=== PATIENT | female | born 1995 | race Caucasian/White ===

== ENCOUNTER 2017-08-04 02:41 | Inpatient (IN) | payer OTHER ==
[2017-08-04] VITALS (19 sets, daily range): BP systolic 116–162; BP diastolic 58–91; PULSE 84–104; RESP 17–30; TEMP 97.4–98.7; O2SAT 93–100
[~2017-08-04] VITALS: Ht 160 cm; Wt 78.9 kg
[2017-08-04] MEDS ORDERED: PROPOFOL 1000 MG/100 ML INJ 100 ML ONE (03:06)
[2017-08-04] MEDS ORDERED: ceFAZolin 2 GM PREMIX 50 ML ONE (03:16)
[2017-08-04] MEDS ORDERED: DIPHTH/TETANUS/ACEL PERTUSSIS (BOOSTER) 0.5 ML VIAL/PFS IM ONE (03:17)
[2017-08-04 03:18] LABS: HEMATOCRIT 37.9 % (35.0-46.0); MEAN CELL VOLUME 87.2 FL (80.0-100.0); MEAN CORPUSCULAR HEMOGLOBIN 29.9 PG (27.0-34.0); MEAN CORPUSCULAR HGB CONC 34.3 % (32.0-36.0); MEAN PLATELET VOLUME 7.8 FL (7.0-11.0); PLATELET COUNT 411 TH/MM3 (150-450); RED BLOOD COUNT 4.34 MIL/MM3 (4.00-5.30); RED CELL DISTRIBUTION WIDTH 13.4 % (11.6-17.2); WHITE BLOOD COUNT 29.3 TH/MM3 (4.0-11.0)
[2017-08-04 03:25] LABS: PROTHROMBIN TIME - PATIENT 9.8 SEC (9.8-11.6)
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
[2017-08-04 03:30] LABS: BICARBONATE 18.9 MEQ/L (21.0-32.0); BLOOD UREA NITROGEN 9 MG/DL (7-18); CALCIUM 8.5 MG/DL (8.5-10.1); CHLORIDE 105 MEQ/L (98-107); CREATININE 0.92 MG/DL (0.50-1.00); GLOMERULAR FILTRATION RATE 53 ML/MIN (>89); GLUCOSE,RANDOM 155 MG/DL (74-106); SODIUM (NA) 140 MEQ/L (136-145)
[2017-08-04] MEDS ORDERED: IOHEXOL 350 MG/ML 10 ML VIAL (for RAD DIAG) IVCONTRAST ONE (03:59)
[2017-08-04 04:00] LABS: BANDS 1 % (0-6); LYMPHOCYTES 24 % (9-44); MONOCYTES 3 % (0-8); NEUTROPHIL # MANUAL DIFF 21.4 TH/MM3 (1.8-7.7); POLYS (SEG NEUTROPHILS) 72 % (16-70)
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
[2017-08-04] MEDS ORDERED: fentaNYL DRIP 250 ML IV PRN (04:15)
[2017-08-04] MEDS ORDERED: ENALAPRILAT 1.25 MG/ML VIAL IV PUSH PRN (04:15)
[2017-08-04] MEDS ORDERED: SODIUM CHLORIDE 0.9% FLUSH 10 ML FLUSH IV FLUSH PRN (04:15)
[2017-08-04] MEDS ORDERED: MAGNESIUM HYDROXIDE SUSP 30 ML CUP PO PRN (04:15)
[2017-08-04] MEDS ORDERED: CHLORHEXIDINE GLUCONATE 2 % 1 PACK (2 CLOTHS) TOP PRN (04:15)
[2017-08-04] MEDS ORDERED: NURSING INFORMATION XX SCH (04:15)
[2017-08-04] MEDS ORDERED: PROPOFOL 1000 MG/100 ML INJ 100 ML IV PRN (04:15)
[2017-08-04] MEDS ORDERED: ONDANSETRON ODT 4 MG TAB PO PRN (04:30)
[2017-08-04] MEDS: fentaNYL 2,500 MCG/NS 250 ML IV PRN ×2 (04:41→16:35)
[2017-08-04 05:13] LABS: HEMATOCRIT 33.6 % (35.0-46.0); HEMOGLOBIN 11.6 GM/DL (11.6-15.3)
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
[2017-08-04] MEDS: POTASSIUM CHLOR 20 MEQ PREMIX 100 ML IV SCH ×2 (06:11→07:57)
[2017-08-04] MEDS ORDERED: BISACODYL 10 MG SUPP RECTAL PRN ×2 (07:00)
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
[2017-08-04] MEDS: CHLORHEXIDINE 0.12% (ORAL KIT) 15 ML CUP MT SCH ×2 (07:57→19:27)
[2017-08-04] MEDS: DOCUSATE SODIUM 50 MG/SENNA 8.6 MG TAB PO SCH ×2 (07:58→19:27)
[2017-08-04] MEDS: PROPOFOL 1000 MG/100 ML IV PRN ×4 (07:58→17:56)
[2017-08-04] MEDS: LACTULOSE SYRUP 20 GM/30 ML CUP PO SCH (07:58)
[2017-08-04] MEDS ORDERED: DOCUSATE SODIUM 100 MG CAP PO SCH (09:00)
[2017-08-04] MEDS ORDERED: LACTULOSE SYRUP 20 GM/30 ML CUP PO SCH (09:00)
[2017-08-04] MEDS ORDERED: DOCUSATE SODIUM 50 MG/SENNA 8.6 MG TAB PO SCH (09:00)
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
[2017-08-04] MEDS: LACTATED RINGER'S 1000 ML INJ 1,000 ML IV SCH ×2 (10:15→19:28)
[2017-08-04 13:28] LABS: HEMATOCRIT 34.5 % (35.0-46.0); HEMOGLOBIN 11.3 GM/DL (11.6-15.3)
--- NOTE | 2017-08-04 15:27 | PD.OP ---
Operative Report Date of Surgery: Aug 04, 2017 Preoperative Diagnosis: Right pneumothorax with massive subcutaneous emphysema Postoperative Diagnosis: Right pneumothorax, hemothorax with massive subcutaneous emphysema Procedure: Right sided chest tube placement Anesthesia: None, patient was on propofol and a just undergone rapid sequence intubation Surgeon: Gerard Arshad [employer] Worker(s): None Resident Surgeon: None Operation and Findings: Patient was prepped and draped in a standard sterile manner this was an emergent procedure with an obvious pneumothorax and tension physiology. 3 cm incision was made in the right anterior axillary line over the sixth rib. Blunt dissection using a Chioma clamp was utilized to enter the fifth intercostal space with immediate hennessy of a large volume of air. 32 Filipino chest tube was then placed into position and secured at 16 cm, covered with an occlusive sterile dressing and placed to 20 cm wall suction. Patient noted procedure well there is no complication all sharps were accounted for disposed of properly. Gerard Arshad MD Aug 04, 2017 15:27
[2017-08-04] MEDS ORDERED: DIATRIZOATE MEGLUM/DIATRIZOATE SOD 9 ML CUP PO ONE (16:45)
[2017-08-04 17:46] LABS: HEMATOCRIT 31.4 % (35.0-46.0); HEMOGLOBIN 10.6 GM/DL (11.6-15.3)
[2017-08-04] MEDS ORDERED: IODIXANOL 320 MG/ML 10 ML VIAL (for Rad CT) IVCONTRAST ONE (20:26)
--- NOTE | 2017-08-04 20:54 | RADRPT ---
EXAM DATE: 08/04/2017 8:28 PM EDT AGE/SEX: 89 years / Female INDICATIONS: Follow liver laceration. CLINICAL DATA: This is the patient's subsequent encounter. Patient reports that signs and symptoms h ave been present for 1 day and indicates a pain score of Nonresponsive. MEDICAL/SURGICAL HISTORY: Non-responsive. Non-responsive. ORAL CONTRAST: Prescribed oral contrast ingested. RADIATION DOSE: 9.39 CTDI (mGy) COMPARISON: [facility] [place] ABDOM[place] & PELVIS W CONTRAST, 08/04/2017. . TECHNIQUE: Multiple contiguous axial images were obtained through the abdomen and pelvis following b olus infusion of 75 ml Visipaque 320 (iodixanol) nonionic water-soluble contrast as a single exam d ose. Prescribed oral contrast ingested. Using automated exposure control and adjustment of the mA an d/or kV according to patient size, the radiation dose was kept as low as reasonably achievable to obt ain optimal diagnostic quality images. FINDINGS: Compared with exam from earlier today. Right-sided chest tube is present with a persistent small righ t pneumothorax. Slight increase in right basilar lung consolidation since earlier exam. Left basilar consolidation relatively stable. There is extensive pneumomediastinum as well as extensive air within the body wall bilaterally extend ing from the chest through the abdomen and into bilateral breasts. NG tube present in the stomach. Laceration of the right lobe of the liver is similar to earlier examination. There is some contrast w ithin the gallbladder. Possible laceration upper pole right kidney, stable. There is some free intrap eritoneal fluid which is similar to earlier exam. Fetus present within the uterus. Air within the abd omen is stable. CONCLUSION: 1. Stable CT appearance of right lobe liver laceration. No significant change in intraperitoneal flu id or hemorrhage. 2. Slight increase in right basilar lung consolidation. Persistent small right pleural effusion. 3. Extensive pneumomediastinum persists with air dissecting into the body wall of the chest and abdo men. Stable air within the abdomen and pelvis since earlier exam. Fetus present. 4. Stable right 12th rib fracture. Electronically signed by: Mat Mathur MD 08/04/2017 8:53 PM EDT
[2017-08-05] VITALS (16 sets, daily range): BP systolic 100–128; BP diastolic 50–60; PULSE 76–102; RESP 16–29; TEMP 97.9–98.9; O2SAT 95–100
[2017-08-05] MEDS: PROPOFOL 1000 MG/100 ML IV PRN ×3 (00:16→08:27)
[2017-08-05] MEDS: fentaNYL 2,500 MCG/NS 250 ML IV PRN ×2 (02:09→13:29)
[2017-08-05] MEDS: CHLORHEXIDINE GLUCONATE 2 % 1 PACK (2 CLOTHS) TOP SCH ×2 (02:17→23:20)
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
[2017-08-05] MEDS ORDERED: POTASSIUM CHLOR 40 MEQ PREMIX 100 ML IV PRN ×2 (05:45)
[2017-08-05] MEDS ORDERED: MAGNESIUM SULFATE INJ 4 GM in SODIUM CHLORIDE 0.9% INJ 92 ML IV PRN (05:45)
[2017-08-05] MEDS ORDERED: MAGNESIUM SULFATE INJ 2 GM in SODIUM CHLORIDE 0.9% INJ 96 ML IV PRN (05:45)
[2017-08-05] MEDS ORDERED: POTASSIUM PHOSPHATE MONOBASIC 500 MG TAB PO/TUBE PRN (05:45)
[2017-08-05] MEDS ORDERED: SODIUM PHOSPHATE INJ 30 MMOL in SODIUM CHLOR 0.9% 250 ML INJ 240 ML IV PRN (05:45)
[2017-08-05] MEDS ORDERED: MAGNESIUM OXIDE 400 MG TAB PO PRN (05:45)
[2017-08-05] MEDS ORDERED: POTASSIUM PHOSPHATE INJ 30 MMOL in SODIUM CHLOR 0.9% 250 ML INJ 250 ML IV PRN (05:45)
[2017-08-05] MEDS ORDERED: POTASSIUM PHOSPHATE MONOBASIC 500 MG TAB PO PRN (05:45)
[2017-08-05] MEDS ORDERED: POTASSIUM CHLOR 20 MEQ PREMIX 100 ML IV PRN (05:45)
[2017-08-05 06:22] LABS: AUTOMATED NEUTROPHIL # 10.4 TH/MM3 (1.8-7.7); BASOPHIL % 0.2 % (0.0-2.0); EOSINOPHIL % 0.4 % (0.0-4.0); HEMATOCRIT 27.3 % (35.0-46.0); HEMOGLOBIN 9.3 GM/DL (11.6-15.3); LYMPH % 12.6 % (9.0-44.0); LYMPHOCYTE # 1.6 TH/MM3 (1.0-4.8); MEAN CORPUSCULAR HEMOGLOBIN 29.9 PG (27.0-34.0); MEAN PLATELET VOLUME 7.2 FL (7.0-11.0); MONO % 4.1 % (0.0-8.0); MONOCYTE # 0.5 TH/MM3 (0-0.9); NEUT % 82.7 % (16.0-70.0); PLATELET COUNT 206 TH/MM3 (150-450); RED BLOOD COUNT 3.11 MIL/MM3 (4.00-5.30); RED CELL DISTRIBUTION WIDTH 13.7 % (11.6-17.2); WHITE BLOOD COUNT 12.5 TH/MM3 (4.0-11.0)
[2017-08-05 06:49] LABS: BICARBONATE 18.4 MEQ/L (21.0-32.0); CALCIUM 7.9 MG/DL (8.5-10.1); CREATININE 0.5 MG/DL (0.50-1.00)
[2017-08-05] MEDS: LACTATED RINGER'S 1000 ML INJ 1,000 ML IV SCH (07:55)
[2017-08-05] MEDS: CHLORHEXIDINE 0.12% (ORAL KIT) 15 ML CUP MT SCH ×2 (08:00→20:00)
[2017-08-05] MEDS: POTASSIUM CHLOR 20 MEQ PREMIX 100 ML IV PRN ×2 (08:19→11:20)
[2017-08-05] MEDS: LACTULOSE SYRUP 20 GM/30 ML CUP PO SCH (08:19)
[2017-08-05] MEDS: DOCUSATE SODIUM 50 MG/SENNA 8.6 MG TAB PO SCH ×2 (08:19→20:33)
[2017-08-05 08:46] LABS: MAGNESIUM 1.9 MG/DL (1.5-2.5); PHOSPHORUS 2.7 MG/DL (2.5-4.9)
[2017-08-05] MEDS ORDERED: MIDAZOLAM 100 MG/100 ML INJ 100 ML IV PRN (10:15)
[2017-08-05] MEDS: oxyCODONE HCL ORAL CONC 5 MG/0.25 ML SYRINGE PO SCH ×4 (11:00→23:00)
[2017-08-05] MEDS: HEPARIN SODIUM - SQ 10,000 UNITS/ML VIAL SQ SCH ×2 (11:23→23:00)
[2017-08-05] MEDS ORDERED: MIDAZOLAM 50 MG/NS 50 ML DRIP Premix IV PRN (13:00)
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
[2017-08-05] MEDS: PROPOFOL 1000 MG/100 ML INJ 100 ML IV PRN ×2 (17:26→20:00)
[2017-08-06] VITALS (14 sets, daily range): BP systolic 100–121; BP diastolic 52–60; PULSE 86–114; RESP 16–20; TEMP 98.2–99.7; O2SAT 94–100
[2017-08-06] MEDS: fentaNYL 2,500 MCG/NS 250 ML IV PRN ×3 (01:00→22:47)
[2017-08-06] MEDS: oxyCODONE HCL ORAL CONC 5 MG/0.25 ML SYRINGE PO SCH ×6 (02:56→22:47)
[2017-08-06] MEDS: PROPOFOL 1000 MG/100 ML INJ 100 ML IV PRN ×5 (04:15→20:14)
--- NOTE | 2017-08-06 04:40 | RADRPT ---
EXAM DATE: 08/06/2017 3:57 AM EDT AGE/SEX: 21 years / Female INDICATIONS: Evaluate for pneumothorax. CLINICAL DATA: This is the patient's subsequent encounter. Patient reports that signs and symptoms h ave been present for 3 days and indicates a pain score of Nonresponsive. MEDICAL/SURGICAL HISTORY: Non-responsive. Non-responsive. COMPARISON: [facility] [place]. . FINDINGS: Today's exam is compared to the prior study. The support devices remain in place. The previously note d right pneumothorax has essentially resolved. There is a patchy infiltrate in the right lung base. L eft lung appears to be clear and stable. No definite pleural effusions. The heart size is stable. The bony structures are stable. The subcutaneous emphysema is mildly improved.. CONCLUSION: 1. Right chest tube remains in place. The previously noted right pneumothorax has essentially resolv ed. 2. Patchy infiltrate in the right lung base. 3. Improving subcutaneous emphysema. Electronically signed by: Chay Patel MD 08/06/2017 4:39 AM EDT
[2017-08-06 06:45] LABS: AUTOMATED NEUTROPHIL # 9.9 TH/MM3 (1.8-7.7); BASOPHIL % 0.3 % (0.0-2.0); EOSINOPHIL # 0.1 TH/MM3 (0-0.4); HEMOGLOBIN 8.7 GM/DL (11.6-15.3); LYMPH % 12.9 % (9.0-44.0); LYMPHOCYTE # 1.6 TH/MM3 (1.0-4.8); MEAN CELL VOLUME 87.9 FL (80.0-100.0); MEAN CORPUSCULAR HEMOGLOBIN 30.5 PG (27.0-34.0); MEAN CORPUSCULAR HGB CONC 34.7 % (32.0-36.0); MEAN PLATELET VOLUME 7.2 FL (7.0-11.0); MONO % 3.2 % (0.0-8.0); MONOCYTE # 0.4 TH/MM3 (0-0.9); NEUT % 82.6 % (16.0-70.0); PLATELET COUNT 202 TH/MM3 (150-450); RED BLOOD COUNT 2.85 MIL/MM3 (4.00-5.30); RED CELL DISTRIBUTION WIDTH 13.6 % (11.6-17.2)
[2017-08-06 07:04] LABS: BICARBONATE 19.5 MEQ/L (21.0-32.0); CALCIUM 7.9 MG/DL (8.5-10.1); CREATININE 0.47 MG/DL (0.50-1.00)
[2017-08-06] MEDS: CHLORHEXIDINE 0.12% (ORAL KIT) 15 ML CUP MT SCH ×2 (09:28→20:14)
[2017-08-06] MEDS: DOCUSATE SODIUM 50 MG/SENNA 8.6 MG TAB PO SCH ×2 (09:28→20:14)
[2017-08-06] MEDS: LACTULOSE SYRUP 20 GM/30 ML CUP PO SCH (09:28)
[2017-08-06] MEDS: LACTATED RINGER'S 1000 ML INJ 1,000 ML IV SCH ×2 (10:22→22:47)
[2017-08-06] MEDS: HEPARIN SODIUM - SQ 10,000 UNITS/ML VIAL SQ SCH ×2 (11:49→22:47)
[2017-08-07] VITALS (17 sets, daily range): BP systolic 108–125; BP diastolic 53–70; PULSE 84–112; RESP 16–27; TEMP 98.2–99.8; O2SAT 95–100
[2017-08-07] MEDS: PROPOFOL 1000 MG/100 ML INJ 100 ML IV PRN ×2 (01:00→06:00)
[2017-08-07] MEDS: CHLORHEXIDINE GLUCONATE 2 % 1 PACK (2 CLOTHS) TOP SCH (02:49)
[2017-08-07] MEDS: oxyCODONE HCL ORAL CONC 5 MG/0.25 ML SYRINGE PO SCH ×3 (02:51→09:02)
[2017-08-07 05:50] LABS: AUTOMATED NEUTROPHIL # 6.2 TH/MM3 (1.8-7.7); BASOPHIL % 0.2 % (0.0-2.0); EOSINOPHIL # 0.1 TH/MM3 (0-0.4); EOSINOPHIL % 1.1 % (0.0-4.0); LYMPH % 15.6 % (9.0-44.0); LYMPHOCYTE # 1.2 TH/MM3 (1.0-4.8); MEAN CELL VOLUME 87.3 FL (80.0-100.0); MEAN CORPUSCULAR HEMOGLOBIN 30.5 PG (27.0-34.0); MEAN CORPUSCULAR HGB CONC 34.9 % (32.0-36.0); MEAN PLATELET VOLUME 7.2 FL (7.0-11.0); MONO % 4.2 % (0.0-8.0); MONOCYTE # 0.3 TH/MM3 (0-0.9); NEUT % 78.9 % (16.0-70.0); PLATELET COUNT 174 TH/MM3 (150-450); RED BLOOD COUNT 2.63 MIL/MM3 (4.00-5.30); RED CELL DISTRIBUTION WIDTH 13.2 % (11.6-17.2); WHITE BLOOD COUNT 7.9 TH/MM3 (4.0-11.0)
[2017-08-07 06:09] LABS: BICARBONATE 19.7 MEQ/L (21.0-32.0); CREATININE 0.32 MG/DL (0.50-1.00)
--- NOTE | 2017-08-07 06:13 | RADRPT ---
EXAM DATE: 08/07/2017 5:59 AM EDT AGE/SEX: 21 years / Female INDICATIONS: Short of breath. CLINICAL DATA: This is the patient's subsequent encounter. Patient reports that signs and symptoms h ave been present for 3 days and indicates a pain score of 0/10. MEDICAL/SURGICAL HISTORY: Non-responsive. Non-responsive. COMPARISON: [facility], CHEST SINGLE AP, 08/06/2017. . FINDINGS: Endotracheal tube and nasogastric tube in good position. Right chest tube without significant pneumot horax. Extensive subcutaneous air remains. Bilateral patchy airspace disease relatively unchanged ove r the last day. No pneumothorax or significant effusion identified. CONCLUSION: Right chest tube without significant pneumothorax. No significant change compared with August 06. Electronically signed by: Mat Mathur MD 08/07/2017 6:11 AM EDT
[2017-08-07] MEDS: POTASSIUM CHLORIDE 20 MEQ PWD PACKET PO PRN (06:31)
[2017-08-07] MEDS: LACTULOSE SYRUP 20 GM/30 ML CUP PO SCH (09:02)
[2017-08-07] MEDS: DOCUSATE SODIUM 50 MG/SENNA 8.6 MG TAB PO SCH ×2 (09:02→21:39)
[2017-08-07] MEDS: CHLORHEXIDINE 0.12% (ORAL KIT) 15 ML CUP MT SCH (09:03)
--- NOTE | 2017-08-07 09:23 | PD.CONS ---
History & Physical H&P Patient evaluated by resident team and Dr. Manzo this morning. Wet prep was performed as nursing staff reported white vaginal discharge. heart tones were detected with Doppler estimated in the 130s. At that time patient requested an ultrasound of the baby as she was sedated with the previous ultrasound during this hospitalization. Bedside ultrasound was performed by Dr. Manzo with noted good movement, grossly normal fluid. Did not assess any formal anatomic survey, measurements. Will change heart tones to daily as opposed to every shift. Casey Zavala MD R1 Aug 07, 2017 09:23
[2017-08-07] MEDS ORDERED: MORPHINE SULFATE 4 MG/ML INJ IV PUSH PRN (10:15)
[2017-08-07] MEDS: HEPARIN SODIUM - SQ 10,000 UNITS/ML VIAL SQ SCH ×2 (11:02→22:28)
[2017-08-07] MEDS ORDERED: REMOVE OLD LIDOCAINE PATCH T-DERMAL SCH (12:00)
[2017-08-07] MEDS: METHOCARBAMOL 500 MG TAB PO SCH ×2 (13:27→21:38)
[2017-08-07] MEDS: oxyCODONE/ACETAMINOPHEN 5 MG/325 MG TAB PO PRN ×3 (13:28→21:39)
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
[2017-08-07] MEDS: LIDOCAINE HCL 5% PATCH T-DERMAL SCH (16:39)
[2017-08-07] MEDS: MULTIVITAMIN TAB PO SCH (16:40)
[2017-08-07] MEDS: THIAMINE HCL 100 MG TAB PO SCH (16:43)
[2017-08-07] MEDS: FOLIC ACID 1 MG TAB PO SCH (16:44)
[2017-08-07] MEDS: FERROUS SULFATE 325 MG (65 MG ELEMENTAL IRON) TAB PO SCH (16:44)
[2017-08-08] VITALS (10 sets, daily range): BP systolic 105–162; BP diastolic 57–80; PULSE 76–98; RESP 16–18; TEMP 98–98.6; O2SAT 95–100
[2017-08-08] MEDS: CHLORHEXIDINE GLUCONATE 2 % 1 PACK (2 CLOTHS) TOP SCH (04:00)
[2017-08-08] MEDS: oxyCODONE/ACETAMINOPHEN 5 MG/325 MG TAB PO PRN ×3 (04:05→19:18)
--- NOTE | 2017-08-08 05:16 | RADRPT ---
EXAM DATE: 08/08/2017 5:05 AM EDT AGE/SEX: 21 years / Female INDICATIONS: Pneumothorax, right sided. CLINICAL DATA: This is the patient's subsequent encounter. Patient reports that signs and symptoms h ave been present for 4 - 6 days and indicates a pain score of Nonresponsive. MEDICAL/SURGICAL HISTORY: Non-responsive. Non-responsive. COMPARISON: [facility] [place], [place]. . FINDINGS: Right chest tube without pneumothorax. Bilateral mostly basilar and dependent airspace disease is sta ble. Extensive subcutaneous air. Removal of NG tube and endotracheal tube. CONCLUSION: Right chest tube without significant pneumothorax. Stable bilateral airspace disease. Extensive subcu taneous air. Interval extubation. Electronically signed by: Mat Mathur MD 08/08/2017 5:15 AM EDT
[2017-08-08 05:39] LABS: BASOPHIL % 0.2 % (0.0-2.0); EOSINOPHIL # 0.1 TH/MM3 (0-0.4); EOSINOPHIL % 0.9 % (0.0-4.0); HEMATOCRIT 25.8 % (35.0-46.0); HEMOGLOBIN 9.1 GM/DL (11.6-15.3); LYMPH % 13.1 % (9.0-44.0); MEAN CORPUSCULAR HEMOGLOBIN 30.8 PG (27.0-34.0); MEAN CORPUSCULAR HGB CONC 35.4 % (32.0-36.0); MEAN PLATELET VOLUME 7.2 FL (7.0-11.0); MONO % 5.6 % (0.0-8.0); MONOCYTE # 0.4 TH/MM3 (0-0.9); NEUT % 80.2 % (16.0-70.0); PLATELET COUNT 234 TH/MM3 (150-450); RED BLOOD COUNT 2.96 MIL/MM3 (4.00-5.30); RED CELL DISTRIBUTION WIDTH 13.2 % (11.6-17.2); WHITE BLOOD COUNT 7.5 TH/MM3 (4.0-11.0)
[2017-08-08 05:54] LABS: ALBUMIN 2.2 GM/DL (3.4-5.0); AST (GOT) 49 U/L (16-38); BICARBONATE 21.2 MEQ/L (21.0-32.0); BLOOD UREA NITROGEN 3 MG/DL (7-18); CHLORIDE 106 MEQ/L (98-107); CREATININE 0.32 MG/DL (0.50-1.00); GLOMERULAR FILTRATION RATE 266 ML/MIN (>89); GLUCOSE,RANDOM 69 MG/DL (74-106); SODIUM (NA) 141 MEQ/L (136-145)
[2017-08-08 05:55] LABS: ALT (GPT) 108 U/L (9-42)
[2017-08-08 05:57] LABS: ALKALINE PHOSPHATASE 111 U/L (45-117); TOTAL BILIRUBIN ADULT 1.5 MG/DL (0.2-1.0); TOTAL PROTEIN 5.6 GM/DL (6.4-8.2)
[2017-08-08] MEDS: METHOCARBAMOL 500 MG TAB PO SCH (06:12)
[2017-08-08] MEDS: LACTULOSE SYRUP 20 GM/30 ML CUP PO SCH (08:57)
[2017-08-08] MEDS: MULTIVITAMIN TAB PO SCH (08:57)
[2017-08-08] MEDS: LIDOCAINE HCL 5% PATCH T-DERMAL SCH (08:57)
[2017-08-08] MEDS: REMOVE OLD LIDOCAINE PATCH T-DERMAL SCH (08:58)
[2017-08-08] MEDS: FERROUS SULFATE 325 MG (65 MG ELEMENTAL IRON) TAB PO SCH (08:58)
[2017-08-08] MEDS: FOLIC ACID 1 MG TAB PO SCH (08:58)
[2017-08-08] MEDS: THIAMINE HCL 100 MG TAB PO SCH (08:58)
[2017-08-08] MEDS: DOCUSATE SODIUM 50 MG/SENNA 8.6 MG TAB PO SCH ×2 (08:58→19:17)
[2017-08-08] MEDS: POTASSIUM CHLORIDE 20 MEQ PWD PACKET PO PRN (08:59)
[2017-08-08] MEDS: HEPARIN SODIUM - SQ 10,000 UNITS/ML VIAL SQ SCH ×2 (10:07→22:59)
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
[2017-08-08] MEDS: MICONAZOLE NITRATE 200 MG VAG SUPP VAGINAL SCH (20:21)
[2017-08-09] VITALS (7 sets, daily range): BP systolic 116–141; BP diastolic 55–69; PULSE 76–100; RESP 17–18; TEMP 97.6–98.3; O2SAT 94–98
[2017-08-09] MEDS: oxyCODONE/ACETAMINOPHEN 5 MG/325 MG TAB PO PRN (00:46)
[2017-08-09 04:22] LABS: AUTOMATED NEUTROPHIL # 7.5 TH/MM3 (1.8-7.7); BASOPHIL % 0.4 % (0.0-2.0); EOSINOPHIL # 0.1 TH/MM3 (0-0.4); EOSINOPHIL % 0.8 % (0.0-4.0); HEMATOCRIT 27.8 % (35.0-46.0); HEMOGLOBIN 9.7 GM/DL (11.6-15.3); LYMPH % 11.2 % (9.0-44.0); MEAN CELL VOLUME 86.2 FL (80.0-100.0); MEAN CORPUSCULAR HGB CONC 34.8 % (32.0-36.0); MONO % 5.2 % (0.0-8.0); MONOCYTE # 0.5 TH/MM3 (0-0.9); NEUT % 82.4 % (16.0-70.0); PLATELET COUNT 273 TH/MM3 (150-450); RED BLOOD COUNT 3.23 MIL/MM3 (4.00-5.30); RED CELL DISTRIBUTION WIDTH 13.1 % (11.6-17.2); WHITE BLOOD COUNT 9.1 TH/MM3 (4.0-11.0)
[2017-08-09 04:43] LABS: ALBUMIN 2.2 GM/DL (3.4-5.0); ALT (GPT) 85 U/L (9-42); AST (GOT) 24 U/L (16-38); BLOOD UREA NITROGEN 4 MG/DL (7-18); CHLORIDE 106 MEQ/L (98-107); CREATININE 0.27 MG/DL (0.50-1.00); GLOMERULAR FILTRATION RATE 324 ML/MIN (>89); GLUCOSE,RANDOM 72 MG/DL (74-106); SODIUM (NA) 140 MEQ/L (136-145)
[2017-08-09 04:45] LABS: ALKALINE PHOSPHATASE 98 U/L (45-117)
--- NOTE | 2017-08-09 04:45 | RADRPT ---
EXAM DATE: 08/09/2017 4:40 AM EDT AGE/SEX: 21 years / Female INDICATIONS: Pneumothorax, right sided CLINICAL DATA: This is the patient's subsequent encounter. Patient reports that signs and symptoms h ave been present for 4 - 6 days and indicates a pain score of 0/10. MEDICAL/SURGICAL HISTORY: Non-responsive. Non-responsive. COMPARISON: [facility] – [place], CHEST SINGLE AP, 08/08/2017. . FINDINGS: Right chest present without significant pneumothorax. Bilateral mostly basilar airspace disease simil ar to August 08. Subcutaneous air present bilaterally. Right chest tube without significant pneumothorax. Bilateral airspace disease similar to prior exam. CONCLUSION: Right chest tube without significant pneumothorax. Bilateral airspace disease similar to prior exam. Electronically signed by: Mat Mathur MD 08/09/2017 4:44 AM EDT
[2017-08-09] MEDS ORDERED: POTASSIUM CHLORIDE 20 MEQ CONTROLLED RELEASE TAB PO ONE (08:45)
[2017-08-09] MEDS: LACTULOSE SYRUP 20 GM/30 ML CUP PO SCH (09:00)
[2017-08-09] MEDS: DOCUSATE SODIUM 50 MG/SENNA 8.6 MG TAB PO SCH ×2 (09:13→21:00)
[2017-08-09] MEDS: oxyCODONE/ACETAMINOPHEN 10 MG/325 MG TAB PO PRN ×3 (09:13→22:42)
[2017-08-09] MEDS: FERROUS SULFATE 325 MG (65 MG ELEMENTAL IRON) TAB PO SCH (09:13)
[2017-08-09] MEDS: MULTIVITAMIN TAB PO SCH (09:14)
[2017-08-09] MEDS: FOLIC ACID 1 MG TAB PO SCH (09:14)
[2017-08-09] MEDS: THIAMINE HCL 100 MG TAB PO SCH (09:14)
[2017-08-09] MEDS: LIDOCAINE HCL 5% PATCH T-DERMAL SCH (09:15)
[2017-08-09] MEDS: HEPARIN SODIUM - SQ 10,000 UNITS/ML VIAL SQ SCH ×2 (09:15→22:42)
[2017-08-09] MEDS: REMOVE OLD LIDOCAINE PATCH T-DERMAL SCH (09:15)
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
[2017-08-09] MEDS ORDERED: THERTAB15 PO (13:44)
[2017-08-09] MEDS ORDERED: FERR325T20 PO (13:44)
[2017-08-09] MEDS ORDERED: PERI PO (13:44)
[2017-08-09] MEDS: MICONAZOLE NITRATE 200 MG VAG SUPP VAGINAL SCH (22:41)
[2017-08-10] VITALS: BP 129/69; PULSE 98; RESP 18; TEMP 97.8; O2SAT 96
[2017-08-10 04:09] LABS: AUTOMATED NEUTROPHIL # 6.3 TH/MM3 (1.8-7.7); BASOPHIL # 0.1 TH/MM3 (0-0.2); BASOPHIL % 0.7 % (0.0-2.0); EOSINOPHIL # 0.1 TH/MM3 (0-0.4); EOSINOPHIL % 1.2 % (0.0-4.0); HEMATOCRIT 27.6 % (35.0-46.0); HEMOGLOBIN 9.9 GM/DL (11.6-15.3); LYMPH % 14.8 % (9.0-44.0); LYMPHOCYTE # 1.2 TH/MM3 (1.0-4.8); MEAN CELL VOLUME 86.5 FL (80.0-100.0); MEAN CORPUSCULAR HEMOGLOBIN 30.9 PG (27.0-34.0); MEAN CORPUSCULAR HGB CONC 35.7 % (32.0-36.0); MEAN PLATELET VOLUME 6.7 FL (7.0-11.0); MONO % 6.1 % (0.0-8.0); MONOCYTE # 0.5 TH/MM3 (0-0.9); NEUT % 77.2 % (16.0-70.0); PLATELET COUNT 269 TH/MM3 (150-450); RED BLOOD COUNT 3.19 MIL/MM3 (4.00-5.30); RED CELL DISTRIBUTION WIDTH 13.3 % (11.6-17.2); WHITE BLOOD COUNT 8.2 TH/MM3 (4.0-11.0)
--- NOTE | 2017-08-10 04:09 | RADRPT ---
EXAM DATE: 08/10/2017 4:05 AM EDT AGE/SEX: 21 years / Female INDICATIONS: Respiratory disease. CLINICAL DATA: This is the patient's subsequent encounter. Patient reports that signs and symptoms h ave been present for 1 week and indicates a pain score of Nonresponsive. MEDICAL/SURGICAL HISTORY: None. None. COMPARISON: [facility] [place], CHEST SINGLE AP, 08/09/2017. . FINDINGS: A single AP view of the chest demonstrates the lungs to be symmetrically aerated without evidence of mass, infiltrate or effusion. The cardiomediastinal contours are unremarkable. Osseous structures a re intact. Extensive subcutaneous air in the right chest wall unchanged from the previous study CONCLUSION: Lungs are grossly clear. The subcutaneous fat on the right side unchanged Electronically signed by: Jakob Dia MD 08/10/2017 4:07 AM EDT
[2017-08-10 04:31] LABS: ALBUMIN 2.3 GM/DL (3.4-5.0); AST (GOT) 18 U/L (16-38); BICARBONATE 22.7 MEQ/L (21.0-32.0); BLOOD UREA NITROGEN 7 MG/DL (7-18); CALCIUM 7.7 MG/DL (8.5-10.1); CHLORIDE 105 MEQ/L (98-107); CREATININE 0.33 MG/DL (0.50-1.00); GLOMERULAR FILTRATION RATE 257 ML/MIN (>89); GLUCOSE,RANDOM 71 MG/DL (74-106); MAGNESIUM 1.9 MG/DL (1.5-2.5); SODIUM (NA) 139 MEQ/L (136-145)
[2017-08-10 04:32] LABS: ALT (GPT) 64 U/L (9-42)
[2017-08-10 04:35] LABS: ALKALINE PHOSPHATASE 91 U/L (45-117); TOTAL BILIRUBIN ADULT 0.8 MG/DL (0.2-1.0); TOTAL PROTEIN 5.8 GM/DL (6.4-8.2)
[2017-08-10] MEDS: oxyCODONE/ACETAMINOPHEN 10 MG/325 MG TAB PO PRN (06:44)
[2017-08-10] MEDS: REMOVE OLD LIDOCAINE PATCH T-DERMAL SCH (07:51)
[2017-08-10] MEDS: LIDOCAINE HCL 5% PATCH T-DERMAL SCH (07:51)
[2017-08-10] MEDS: THIAMINE HCL 100 MG TAB PO SCH (07:54)
[2017-08-10] MEDS: FOLIC ACID 1 MG TAB PO SCH (07:54)
[2017-08-10] MEDS: MULTIVITAMIN TAB PO SCH (07:54)
[2017-08-10] MEDS: DOCUSATE SODIUM 50 MG/SENNA 8.6 MG TAB PO SCH (07:54)
[2017-08-10] MEDS: LACTULOSE SYRUP 20 GM/30 ML CUP PO SCH (07:54)
[2017-08-10] MEDS: FERROUS SULFATE 325 MG (65 MG ELEMENTAL IRON) TAB PO SCH (07:54)
[2017-08-10] MEDS ORDERED: POTASSIUM CHLORIDE 20 MEQ CONTROLLED RELEASE TAB PO ONE (08:15)
[2017-08-10 09:33] VITALS: BP 125/56; PULSE 97; RESP 18; TEMP 98; O2SAT 93
[2017-08-10 09:52] VITALS: O2SAT 97
[2017-08-10] MEDS ORDERED: OXYC1TAB63 PO (11:11)
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
[2017-08-10] MEDS: HEPARIN SODIUM - SQ 10,000 UNITS/ML VIAL SQ SCH (11:32)
[2017-08-10] MEDS ORDERED: POTASSIUM CHLORIDE 10 MEQ CONTROLLED RELEASE TAB PO ONE (12:00)
[2017-08-10] MEDS ORDERED: guaiFENesin E.R. 600 MG TAB PO PRN (12:30)
[2017-08-10] MEDS ORDERED: guaiFENesin ER PO (12:32)
[2017-08-10] MEDS: oxyCODONE/ACETAMINOPHEN 5 MG/325 MG TAB PO PRN (13:20)
== END 2017-08-10 14:47 | disposition home or self-care (01) | DRG 964 ==
LOC: NEPI 02:41 → NEDA 03:32 → EDBD 03:32 → N03A 03:50 → N07A 08-08 14:54
PROVIDERS: ADMIT Surgery; ATTEND Surgery
PROC: 0BH17EZ Insertion of Endotracheal Airway into Trachea, Via Natural or Artificial Opening (ICD-10-PCS; principal; 2017-08-04)
PROC: 5A1945Z Respiratory Ventilation, 24-96 Consecutive Hours (ICD-10-PCS; 2017-08-04)
PROC: 0W9930Z Drainage of Right Pleural Cavity with Drainage Device, Percutaneous Approach (ICD-10-PCS; 2017-08-04)
DX: S27.2XXA Traumatic hemopneumothorax, initial encounter (principal); S22.41XA Multiple fractures of ribs, right side, initial encounter for closed fracture; S37.041A Minor laceration of right kidney, initial encounter; S36.116A Major laceration of liver, initial encounter; J93.82 Other air leak; K66.8 Other specified disorders of peritoneum; T79.7XXA Traumatic subcutaneous emphysema, initial encounter; R31.0 Gross hematuria; Z33.1 Pregnant state, incidental; V43.52XA Car driver injured in collision with other type car in traffic accident, initial encounter; Y92.410 Unspecified street and highway as the place of occurrence of the external cause
CPT/HCPCS: 31500; 32551; 36600; 51702; 70450; 71045; 71260; 72125; 72170; 74177; 76815; 80048; 80053; 80074; 80307; 82805; 83605; 83735; 84100; 85007; 85014; 85018; 85025; 85027; 85384; 85610; 85730; 86592; 86762; 86850; 86900; 86901; 86920; 87210; 87389; 87641; 90715; 94002; 94003; 94150; 94640; 94667; 94668; 96374; 96375; 99291; G0390; G0475; J0690; J1644; J2250; J3010; J3480; J7120; Q9963; Q9967